=== PATIENT | female | born 1950 | race Hispanic/Latino ===

== ENCOUNTER 2017-04-02 12:42 | Outpatient (CLI) | payer MEDICARE, OTHER ==
--- NOTE | 2017-04-03 12:06 | Mammography Report ---
BILATERAL MAMMOGRAM with CAD: HISTORY: Cancer screening. Comparison study is dated March 27, 2016. FINDINGS: There are scattered fibroglandular densities (approximately 25%-50% glandular). No mass, distortion, suspicious calcification, or skin change is seen. IMPRESSION: Negative mammogram. There is no mammographic evidence of malignancy. RECOMMENDATION: Follow-up per ACS guidelines. BI-RADS CATEGORY: 1 = Negative ACR BI-RADS MAMMOGRAPHIC CODES: 0 = Needs additional imaging evaluation; 1 = Negative; 2 = Benign; 3 = Probably benign; 4 = Suspicious; 5 = Malignant; 6 = Known biopsy-proven malignancy COMMENT: 1. Dense breast tissue, i.e., adenosis, fibrocystic changes, etc., may obscure an underlying neoplasm. 2. Approximately 10% of cancers are not detected with mammography. 3. A negative mammography report should not delay biopsy if a clinically suspicious mass is present. COMMENT: Patient follow-up letters are generated in [employer].
== END 2017-04-02 12:43 | disposition home or self-care (01) ==
LOC: MAMMO 12:42
PROVIDERS: ATTEND Obstetrics & Gynecology
DX: Z12.31 Encounter for screening mammogram for malignant neoplasm of breast (principal)
CPT/HCPCS: 77067; G0202

== ENCOUNTER 2018-04-15 09:37 | Outpatient (CLI) | payer MEDICARE, OTHER ==
--- NOTE | 2018-04-15 15:40 | Mammography Report ---
BILATERAL DIGITAL SCREENING MAMMOGRAM with CAD: 04/15/18 09:37:00 CLINICAL: Routine screening. COMPARISON:04/02/17, 03/27/16 and 03/21/15 FINDINGS: The breasts are heterogeneously dense, which may obscure small masses. No mass, architectural distortion or suspicious calcifications. IMPRESSION: No mammographic evidence of malignancy. BI-RADS CATEGORY: 1 - - Negative RECOMMENDATION: Routine mammographic screening in one year. COMMENT: Patient follow-up letters are generated by our [employer] application.
== END 2018-04-15 09:38 | disposition home or self-care (01) ==
LOC: MAMMO 09:37
PROVIDERS: ATTEND Obstetrics & Gynecology
DX: Z12.31 Encounter for screening mammogram for malignant neoplasm of breast (principal)
CPT/HCPCS: 77067

== ENCOUNTER 2020-05-10 10:08 | Outpatient (CLI) | payer MEDICARE ==
--- NOTE | 2020-05-10 12:05 | Mammography Report ---
BILATERAL DIGITAL SCREENING MAMMOGRAM WITH CAD HISTORY: SCREENING MAMMO TECHNIQUE: Routine digital mammographic imaging performed. This examination was interpreted with socrates mariscal benefit of Computer-aided Detection analysis. COMPARISON: 04/28/2019, 04/15/2018, 04/02/2017, 03/27/2016. FINDINGS: Breast Density: heterogeneously dense breast parenchymal pattern which somewhat lessens the sensitivi ty of the evaluation. Digital CC and MLO views demonstrate no mammographic evidence of malignancy. IMPRESSION: No mammographic evidence of malignancy. If the clinical examination remains stable, recommend bilate ral mammogram in approximately one year. BIRADS 1: Negative. FURTHER INFORMATION: According to the [employer], yearly mammograms are recommend ed starting at age 40 and continuing as long as a woman is in good health. Clinical Breast Exams shou ld be part of a periodic health exam-about every 3 years for women in their 20s and 30s and every yea r for women 40 and over. Breast self exam is an option for women starting in their 20s. Any breast ch lilly noted on a breast self exam should be reported promptly to the patient's healthcare provider. Br east MRI is recommended for women with an approximately 20-25% or greater lifetime risk of breast can cer, including women with a strong family history of breast or ovarian cancer and women who have been treated for Hodgkin's disease. A negative Mammography report should not discourage follow up or biopsy of a clinically significant f inding and/or abnormality. Dense breast tissue may obscure small neoplasms. The patient will be entered into a reminder system with a target due date for the next screening mamm ogram. Signer Name: Kyle Bledsoe MD Signed: 05/10/2020 12:00 PM Workstation Name: [id number]
== END 2020-05-10 10:09 | disposition home or self-care (01) ==
LOC: MAMMO 10:08
PROVIDERS: ATTEND Obstetrics & Gynecology
DX: Z12.31 Encounter for screening mammogram for malignant neoplasm of breast (principal)
CPT/HCPCS: 77067

== ENCOUNTER 2020-10-11 15:26 | Emergency (ER) | payer MEDICARE, OTHER ==
--- NOTE | 2020-10-11 15:38 | Emergency Department Report ---
Blank Doc - Documentation Documentation: 69-year-old female that presents with epigastric pain times several days. [facility] was seen in urgent care yesterday and symptoms of pain has worsened today. 1- This initial assessment/diagnostic orders/clinical plan/ treatment(s) is/are subject to change based on pt's health status, clinical progression and re- assessment by fellow clinical providers in the ED. Further treatment and workup at subsequent clinical provers discretion. Patient/guardians urged not to elope from ED as their condition may be serious if not clinically assessed and managed. 2-labs 3-EKG 4-UA
[2020-10-11 16:02] LABS: Basophils # (Auto) 0.1 K/mm3 (0.0-0.1); Basophils % (Auto) 0.4 % (0.0-1.8); Eosinophils # (Auto) 0.9 K/mm3 (0.0-0.4); Eosinophils % (Auto) 6.4 % (0.0-4.3); Hematocrit 34.1 % (30.3-42.9); Hemoglobin 10.9 gm/dl (10.1-14.3); Lymphocytes # (Auto) 1.9 K/mm3 (1.2-5.4); Lymphocytes % (Auto) 13.2 % (13.4-35.0); Mean Corpuscular HGB Conc 32 % (30-34); Mean Corpuscular Volume 79 fl (79-97); Monocytes # (Auto) 0.9 K/mm3 (0.0-0.8); Monocytes % (Auto) 6.4 % (0.0-7.3); Platelet Count 611 K/mm3 (140-440); Red Blood Count 4.31 M/mm3 (3.65-5.03); Red Cell Distribution Width 17.9 % (13.2-15.2)
[2020-10-11 16:30] LABS: Alanine Aminotransferase 8 units/L (7-56); Albumin 3.8 g/dL (3.9-5); BUN/Creatinine Ratio 19; Blood Urea Nitrogen 15 mg/dL (7-17); Calcium 9.3 mg/dL (8.4-10.2); Hemolysis Index 1
--- NOTE | 2020-10-11 20:33 | Emergency Department Report ---
ED General Adult HPI - General Chief complaint: Abdominal Pain Stated complaint: ABD PAIN Time Seen by Provider: 10/11/20 15:31 Source: patient Mode of arrival: Ambulatory Limitations: No Limitations - History of Present Illness Initial comments: 69-year-old female presents with complaints of epigastric pain x3 weeks. Patient states she was seen at an urgent care yesterday and prescribed omeprazole that she has taken yesterday and today. She describes the pain as a burning stinging type pain, and denies any nausea/vomiting, melena/hematochezia, chest pain, shortness of breath, fever/chills/sweats, or urinary symptoms. Patient states her symptoms improved with [place]. She has history of hypertension and migraines and takes Fioricet and sumatriptan. She denies any NSAID use or history of GERD/PUD. Patient states she has also been scheduled for a GI appointment for 11/09/2020. Patient is also following with her PCP concerning her epigastric pain. Patient does admit to pain worsening with greasy foods. Past surgical history includes and cholecystectomy. - Related Data Previous Rx's Medication Instructions Recorded Last Taken Type Sucralfate [Carafate] 1 gm PO Q6HR 10 Days #40 tablet 10/11/20 Unknown Rx Allergies Allergy/AdvReac Type Severity Reaction Status Date / Time aspirin AdvReac Unknown Unverified 03/23/14 10:30 codeine AdvReac Vomiting Unverified 03/23/14 10:30 ED Review of Systems ROS: Stated complaint: ABD PAIN Other details as noted in HPI Constitutional: denies: chills, diaphoresis, fever, malaise, weakness ENT: denies: throat pain Respiratory: denies: cough, shortness of breath Cardiovascular: denies: chest pain, palpitations, edema Gastrointestinal: abdominal pain. denies: nausea, vomiting, diarrhea, constipation, hematemesis, melena, hematochezia Genitourinary: denies: urgency, dysuria, frequency, hematuria, discharge, abnormal menses Skin: denies: rash, change in color Neurological: denies: headache Hematological/Lymphatic: denies: easy bleeding, easy bruising ED Past Medical Hx - Past Medical History Previous Medical History?: Yes Hx Headaches / Migraines: Yes - Surgical History Past Surgical History?: Yes Additional Surgical History: hysterectomy - Social History Smoking Status: Never Smoker Substance Use Type: None - Medications Home Medications: Home Medications Medication Instructions Recorded Confirmed Last Taken Type Sucralfate [Carafate] 1 gm PO Q6HR 10 Days #40 tablet 10/11/20 Unknown Rx ED Physical Exam - General Limitations: No Limitations General appearance: alert, in no apparent distress - Head Head exam: Present: atraumatic, normocephalic - Eye Eye exam: Present: normal appearance. Absent: scleral icterus - Neck Neck exam: Present: normal inspection - Respiratory Respiratory exam: Present: normal lung sounds bilaterally. Absent: respiratory distress - Cardiovascular Cardiovascular Exam: Present: regular rate, normal rhythm - GI/Abdominal GI/Abdominal exam: Present: soft, normal bowel sounds. Absent: distended, tenderness, guarding, rebound, rigid - Extremities Exam Extremities exam: Present: full ROM - Back Exam Back exam: Present: normal inspection - Neurological Exam Neurological exam: Present: alert, oriented X3 - Psychiatric Psychiatric exam: Present: normal affect, normal mood - Skin Skin exam: Present: warm, dry, intact, normal color. Absent: rash, cyanosis, diaphoretic, erythema, ecchymosis ED Course Vital Signs 10/11/20 10/11/20 15:40 20:49 Temperature 98.1 F 98.1 F Pulse Rate 82 80 Respiratory 18 18 Rate Blood Pressure 188/88 Blood Pressure 148/82 [Right] O2 Sat by Pulse 99 98 Oximetry ED Medical Decision Making - Lab Data Result diagrams: 10/11/20 15:51 10/11/20 15:51 Lab Results 10/11/20 10/11/20 Range/Units 15:51 15:51 WBC 14.2 H (4.5-11.0) K/mm3 RBC 4.31 (3.65-5.03) M/mm3 Hgb 10.9 (10.1-14.3) gm/dl Hct 34.1 (30.3-42.9) % MCV 79 (79-97) fl MCH 25 L (28-32) pg MCHC 32 (30-34) % RDW 17.9 H (13.2-15.2) % Plt Count 611 H (140-440) K/mm3 Lymph % (Auto) 13.2 L (13.4-35.0) % Brooke % (Auto) 6.4 (0.0-7.3) % Eos % (Auto) 6.4 H (0.0-4.3) % Baso % (Auto) 0.4 (0.0-1.8) % Lymph # (Auto) 1.9 (1.2-5.4) K/mm3 Brooke # (Auto) 0.9 H (0.0-0.8) K/mm3 Eos # (Auto) 0.9 H (0.0-0.4) K/mm3 Baso # (Auto) 0.1 (0.0-0.1) K/mm3 Seg Neutrophils % 73.6 H (40.0-70.0) % Seg Neutrophils # 10.5 H (1.8-7.7) K/mm3 Sodium 137 (137-145) mmol/L Potassium 3.9 (3.6-5.0) mmol/L Chloride 97.4 L (98-107) mmol/L Carbon Dioxide 31 H (22-30) mmol/L Anion Gap 13 mmol/L BUN 15 (7-17) mg/dL Creatinine 0.8 (0.6-1.2) mg/dL Estimated GFR > 60 ml/min BUN/Creatinine Ratio 19 % Glucose 101 H (65-100) mg/dL Calcium 9.3 (8.4-10.2) mg/dL Total Bilirubin 0.20 (0.1-1.2) mg/dL AST 16 (5-40) units/L ALT 8 (7-56) units/L Alkaline Phosphatase 79 (35-129) units/L Troponin T < 0.010 (0.00-0.029) ng/mL Total Protein 7.2 (6.3-8.2) g/dL Albumin 3.8 L (3.9-5) g/dL Albumin/Globulin Ratio 1.1 % Lipase 27 (13-60) units/L - EKG Data EKG shows normal: sinus rhythm Rate: normal - EKG Data Interpretation: no acute changes, LVH - Medical Decision Making 69-year-old female presents with complaints of epigastric pain x3 weeks. Patient states she was seen at an urgent care yesterday and prescribed omeprazole that she has taken yesterday and today. She describes the pain as a burning stinging type pain, and denies any nausea/vomiting, melena/hematochezia, chest pain, shortness of breath, fever/chills/sweats, or urinary symptoms. Patient states her symptoms improved with [place]. She has history of hypertension and migraines and takes Fioricet and sumatriptan. She denies any NSAID use or history of GERD/PUD. Patient states she has also been scheduled for a GI appointment for 11/09/2020. Patient is also following with her PCP concerning her epigastric pain. Patient does admit to pain worsening with greasy foods. Past surgical history includes and cholecystectomy. No abdominal tenderness to palpation noted on exam. Heart and lung exam is normal. CBC shows mildly elevated WBCs, however CMP, lipase, and troponin are normal, EKG is normal. Suspect WBCs mildly elevated due to patient's anxiety. Given patient's history of relief with [place], will treat patient for gastritis. Carafate prescription given and patient informed to avoid greasy/spicy foods and acidic foods. Patient to follow-up with her primary doctor and 2 days and continue taking the omeprazole as prescribed. Also recommend follow-up with GI specialist within 1 week if possible. Signs and symptoms that should prompt immediate return to the emergency department were discussed in detail with patient who verbalizes understanding. She is well-appe aring, her vitals are normal, she is stable for discharge home Critical care attestation.: If time is entered above; I have spent that time in minutes in the direct care of this critically ill patient, excluding procedure time. ED Disposition Clinical Impression: Gastritis Qualifiers: Gastritis type: other gastritis Chronicity: acute Gastritis bleeding: presence of bleeding unspecified Qualified Code(s): K29.00 - Acute gastritis without bleeding Disposition: DC-01 TO HOME OR SELFCARE Is pt being admited?: No Condition: Stable Instructions: Gastritis, Adult, Food Choices for Gastroesophageal Reflux Disease, Adult, Gastroesophageal Reflux Disease, Adult, Abdominal Pain (ED) Prescriptions: Sucralfate [Carafate] 1 gm PO Q6HR 10 Days #40 tablet Referrals: CINDY ECHEVARRIA MD [Primary Care Provider] - 10/13/20
[2020-10-11 21:04] VITALS: BP 148/82
== END 2020-10-11 21:04 | disposition home or self-care (01) ==
LOC: ED 15:26
DX: K29.00 Acute gastritis without bleeding (principal); G43.909 Migraine, unspecified, not intractable, without status migrainosus; Z79.899 Other long term (current) drug therapy; Z90.710 Acquired absence of both cervix and uterus; Z88.6 Allergy status to analgesic agent; Z88.2 Allergy status to sulfonamides
CPT/HCPCS: 36415; 80053; 83690; 84484; 85025; 93005; 99283

== ENCOUNTER 2021-05-23 10:45 | Outpatient (CLI) | payer MEDICARE ==
--- NOTE | 2021-05-23 15:20 | Mammography Report ---
DIGITAL SCREENING MAMMOGRAM WITH CAD, 05/23/2021 CLINICAL INFORMATION / INDICATION: Routine screening mammography. TECHNIQUE: Digital bilateral 2D mammography was obtained in the craniocaudal and mediolateral obliqu e projections. This examination was interpreted with the benefit of Computer-Aided Detection analysis . COMPARISON: 05/10/2020, 04/28/2019 04/02/2017 FINDINGS: Breast Density: There are scattered areas of fibroglandular density. No dominant mass, suspicious calcifications, or architectural distortion in either breast. IMPRESSION: No mammographic evidence of malignancy. Follow up recommendation: Routine yearly BI-RADS Category 1: Negative. A "normal" or negative report should not discourage follow up or biopsy of a clinically significant f inding. A written summary of these findings will be mailed to the patient. The patient will be entered into a mammography reporting system which will generate a reminder letter for the patient's next appointmen t at the appropriate interval. The [employer] recommends yearly mammograms starting at age 40 and continuing as l jeff as a woman is in good health. Breast MRI is recommended for women with an approximate 20-25% or greater lifetime risk of breast cancer, including women with a strong family history of breast or ova rob cancer or who have been treated for Hodgkin's disease. Signer Name: Cherelle Elliott MD Signed: 05/23/2021 3:16 PM Workstation Name: [id number]
== END 2021-05-23 10:46 | disposition home or self-care (01) ==
LOC: MAMMO 10:45
PROVIDERS: ATTEND Obstetrics & Gynecology
DX: Z12.31 Encounter for screening mammogram for malignant neoplasm of breast (principal)
CPT/HCPCS: 77067

== ENCOUNTER 2022-02-15 09:36 | Emergency (ER) | payer MEDICARE, OTHER ==
--- NOTE | 2022-02-15 11:19 | Emergency Department Report ---
ED Upper Extremity Inj HPI - General Chief Complaint: Extremity Injury, Upper Stated Complaint: RIGHT WRIST FX Time Seen by Provider: 02/15/22 11:00 Source: patient Mode of arrival: Ambulatory Limitations: No Limitations - History of Present Illness Initial Comments: 71-year-old female presents emergency department complaining of a trip and fall accident resulting in wrist pain. She was walking out of her kitchen when she tripped over the runner falling forward onto outstretched hands resulting in pain and swelling to the right wrist which began having some tingling sensation. Pain is dull and throbbing worse with palpation and range of of motion she reports no prior injury to this area. No broken skin. She initially was seen and evaluated at an urgent care a wrist a Velcro wrist splint was provided and she was advised to come to the emergency department for a reevaluation and and more secure splinting treatment MD Complaint: Injury to:: right, wrist -: Sudden, days(s) (1 yesterday) Other Extremity Injury: Wrist: Right Handedness: right Place: home Improves With: immobilization Worsens With: movement of extremity Context: fall, injury Associated Symptoms: denies other symptoms - Related Data Previous Rx's Medication Instructions Recorded Last Taken Type Sucralfate [Carafate] 1 gm PO Q6HR 10 Days #40 tablet 10/11/20 Unknown Rx Allergies Allergy/AdvReac Type Severity Reaction Status Date / Time aspirin AdvReac Unknown Unverified 03/23/14 10:30 codeine AdvReac Vomiting Unverified 03/23/14 10:30 ED Review of Systems ROS: Stated complaint: RIGHT WRIST FX Other details as noted in HPI Comment: All other systems reviewed and negative ED Past Medical Hx - Past Medical History Hx Headaches / Migraines: Yes - Surgical History Additional Surgical History: hysterectomy - Social History Smoking Status: Never Smoker Substance Use Type: None - Medications Home Medications: Home Medications Medication Instructions Recorded Confirmed Last Taken Type Sucralfate [Carafate] 1 gm PO Q6HR 10 Days #40 tablet 10/11/20 Unknown Rx ED Physical Exam - General Limitations: No Limitations ( ) General appearance: alert, in no apparent distress - Head Head exam: Present: atraumatic, normocephalic - Eye Eye exam: Present: normal appearance - ENT ENT exam: Present: mucous membranes moist - Neck Neck exam: Present: normal inspection - Respiratory Respiratory exam: Present: normal lung sounds bilaterally. Absent: respiratory distress - Cardiovascular Cardiovascular Exam: Present: regular rate, normal rhythm. Absent: systolic murmur, diastolic murmur, rubs, gallop - GI/Abdominal GI/Abdominal exam: Present: soft, normal bowel sounds - Extremities Exam Extremities exam: Present: tenderness, joint swelling - Expanded Upper Extremity Exam Right Forearm Wrist exam: Present: tenderness, swelling, ecchymosis Hand Wrist exam: Present: tenderness, swelling Hand L/R Back: 1 - Pain and swelling to this region pulses 2+ capillary refill is brisk sensation intact - Back Exam Back exam: Present: normal inspection. Absent: CVA tenderness (R), CVA tenderness (L) - Neurological Exam Neurological exam: Present: alert, oriented X3, CN II-XII intact - Psychiatric Psychiatric exam: Present: normal affect, normal mood - Skin Skin exam: Present: warm, dry, intact, normal color. Absent: rash ED Course Vital Signs 02/15/22 10:34 Temperature 98 F Pulse Rate 97 H Respiratory 16 Rate Blood Pressure 147/73 [Left] O2 Sat by Pulse 98 Oximetry - Orthopedic Splinting/Casting Injury #1 Side: right Upper Extremity Injury Location: wrist Upper Extremity Immobilizer: volar spint ED Medical Decision Making - Radiology Data Radiology results: report reviewed [facility] [address] [place] [address] XRay Report Signed Patient: MUNIR MOSCOSO MR#: [id number] : 1950 Acct:[id number] Age/Sex: 71 / F ADM Date: 02/15/22 Loc: ED Attending Dr: Ordering Physician: DINAH LOMELI Date of Service: 02/15/22 Procedure(s): XR wrist 3+V RT Accession Number(s): [id number] cc: DINAH LOMELI Fluoro Time In Minutes: RIGHT WRIST 3 VIEWS INDICATION / CLINICAL INFORMATION: Fall with right wrist pain. COMPARISON: None available. FINDINGS: BONES / JOINT(S): There is an acute, comminuted fracture of the distal radial metaphysis with mild dorsal angulation and impaction of the distal fracture fragments. The ulna and carpal bones are intact. No dislocation. There are mild degenerative changes. There is mild chondrocalcinosis. SOFT TISSUES: There is mild associated soft tissue swelling at the fracture site. There is also moderate soft tissue swelling involving the dorsum of the hand at the level of the mid to distal metacarpals. ADDITIONAL FINDINGS: None. IMPRESSION: Acute fracture of the distal right radial metaphysis. Signer Name: Ba Vanegas MD Signed: 02/15/2022 11:43 AM Workstation Name: [id number] Transcribed By: RT Dictated By: Ba Vanegas MD Electronically Authenticated By: Ba Vanegas MD Signed Date/Time: 02/15/22 114 DD/ 114 TD/TT: - Medical Decision Making 71-year-old female status post trip and fall landing on outstretched hands resulting in a fracture to the distal radius she was treated accordingly with a volar splint neurovascularly intact following the splinting. We discussed the need to follow-up with orthopedic for definitive management and the need for either a more complex splinting device or cast. Critical care attestation.: If time is entered above; I have spent that time in minutes in the direct care of this critically ill patient, excluding procedure time. ED Disposition Clinical Impression: Distal radius fracture, right Disposition: 01 HOME / SELF CARE / HOMELESS Is pt being admited?: No Does the pt Need Aspirin: No Condition: Stable Instructions: Radial Fracture, Radial Fracture Rehab-SportsMed, Cast or Splint Care, Adult Referrals: [facility] [Provider Group] - 3-5 Days
--- NOTE | 2022-02-15 11:48 | XRay Report ---
RIGHT WRIST 3 VIEWS INDICATION / CLINICAL INFORMATION: Fall with right wrist pain. COMPARISON: None available. FINDINGS: BONES / JOINT(S): There is an acute, comminuted fracture of the distal radial metaphysis with mild do rsal angulation and impaction of the distal fracture fragments. The ulna and carpal bones are intact. No dislocation. There are mild degenerative changes. There is mild chondrocalcinosis. SOFT TISSUES: There is mild associated soft tissue swelling at the fracture site. There is also moder ate soft tissue swelling involving the dorsum of the hand at the level of the mid to distal metacarpa ls. ADDITIONAL FINDINGS: None. IMPRESSION: Acute fracture of the distal right radial metaphysis. Signer Name: Ba Vanegas MD Signed: 02/15/2022 11:43 AM Workstation Name: [id number]
[2022-02-15 14:53] VITALS: BP 138/74
== END 2022-02-15 15:05 | disposition home or self-care (01) ==
LOC: ED 09:36
DX: S52.501A Unspecified fracture of the lower end of right radius, initial encounter for closed fracture (principal); X58.XXXA Exposure to other specified factors, initial encounter; Y93.89 Activity, other specified; Y92.89 Other specified places as the place of occurrence of the external cause; Y99.8 Other external cause status; Z88.6 Allergy status to analgesic agent; Z88.5 Allergy status to narcotic agent
CPT/HCPCS: 99283